=== PATIENT | female | born 1990 ===

== ENCOUNTER 2016-12-18 10:40 | Inpatient (IN) | payer BC, OTHER ==
[~2016-12-18] VITALS: Ht 165.1 cm; Wt 75.0 kg
== END 2016-12-19 17:00 | disposition home or self-care (01) | DRG 775 ==
LOC: FBCO 10:40 → FBC 12:00
PROVIDERS: ADMIT Obstetrics & Gynecology
PROC: 10E0XZZ Delivery of Products of Conception, External Approach (ICD-10-PCS; principal; 2016-12-18)
PROC: 10907ZC Drainage of Amniotic Fluid, Therapeutic from Products of Conception, Via Natural or Artificial Opening (ICD-10-PCS; 2016-12-18)
DX: O69.81X0 Labor and delivery complicated by cord around neck, without compression, not applicable or unspecified (principal); O87.8 Other venous complications in the puerperium; Z3A.39 39 weeks gestation of pregnancy; Z37.0 Single live birth
CPT/HCPCS: 01960; 36415; 59025; 85027; 93971; 99213; J2210; J2590; J7120